=== PATIENT | female | born 1990 | race Caucasian/White ===

== ENCOUNTER 2017-01-21 07:41 | Emergency (ER) | payer OTHER ==
[~2017-01-21] VITALS: Ht 154.9 cm; Wt 60.1 kg
[2017-01-21 07:42] VITALS: BP 114/70
== END 2017-01-21 09:52 | disposition home or self-care (01) ==
LOC: ED 08:56
DX: M25.461 Effusion, right knee (principal)
CPT/HCPCS: 29505